=== PATIENT | male | born 2000 | race Caucasian/White ===

== ENCOUNTER 2025-05-05 09:19 | Emergency (ER) | payer BC, SELFPAY ==
--- NOTE | ~2025-05-05 | XR_ITS ---
Examination: XR chest 2V Clinical History: chest pain on right side since last night, no injuries, no s Comparison: Chest pain Technique: PA and Lateral Findings: Cardiomediastinal silhouette normal size and configuration. Lungs clear. No acute bony abnormality. IMPRESSION: 1. No acute cardiopulmonary findings. Reviewed, dictated and finalized at location R.
[2025-05-05 09:32] VITALS: BP 128/88; PULSE 48; RESP 16; TEMP 36.3; O2SAT 100
--- NOTE | 2025-05-05 09:47 | ECG_ITS ---
Test Date: 2025-05-05 09:46:25 Measurements Intervals [place] Rate: 48 P: 80 OR: 173 QRS: 81 QRSD: 102 T: 62 QT: 463 QTc: 416 Interpretive Statements SINUS BRADYCARDIA RSR' IN V1 OR V2, PROBABLY NORMAL VARIANT No previous ECG available for comparison Electronically Signed On 05-05-2025 14:33:47 CDT by Jose Angel Luna M.D.
--- NOTE | 2025-05-05 10:02 | ED.GENADULT ---
HPI - General Adult General Chief complaint: Chest Pain Stated complaint: chest pain Time Seen by Provider: 05/05/25 09:47 Source: patient, RN notes reviewed and old records reviewed Mode of arrival: ambulatory Limitations: no limitations History of Present Illness HPI narrative: 24-year-old male presents to the [facility] with right-sided chest pain that started last night. Reports it being more constant. Does not change with palpation, movement. Patient does occasionally smoke weed, does occasionally vape. Denies any shortness of breath. Denies any nausea vomiting. Denies any radiation of pain. Full range of motion of the shoulder. No treatment prior to arrival Treatments prior to arrival: none Related Data Home Medications ?Medication ?Instructions ?Recorded ?Confirmed ?Last Taken ?Type celecoxib 200 mg capsule mg 05/05/25 Unknown History Allergies Allergy/AdvReac Type Severity Reaction Status Date / Time No Known Allergies Allergy Verified 05/05/25 09:54 Review of Systems Review of Systems: All systems reviewed & are unremarkable except as noted in HPI and below Constitutional: Constitutional: Reports no additional constitutional complaints ENT: Reports system reviewed and no additional complaints, except as documented Cardiovascular: Cardiovascular: Reports as per HPI, Reports chest pain (Right-sided), Denies syncope, Denies rapid heart rate, Denies edema, Denies irregular heart rhythm and Denies dyspnea Respiratory: Respiratory: Reports no additional respiratory complaints, Denies chest congestion, Denies cough and Denies dyspnea Musculoskeletal: Musculoskeletal: Reports no additional musculoskeletal complaints Integumentary/Breasts: Skin/Breast: Reports system reviewed and no additional complaints, except as docu PMFSH Comments At the time of my signature, I reviewed and agree with the nursing past medical, surgical, social, and family history. There is no relevant family history pertinent to the patient complaint. Exam Const: General: cooperative, healthy appearing, comfortable, no acute distress, well developed, alert and well nourished Nutritional Appearance: well nourished Orientation/consciousness: patient oriented x3 Limitations: no limitations HENMT: Head: normal to inspection Ears: other (Cauliflower ear) Mouth: Yes Normal oral and palatal mucosa present, Yes lip normal, Yes tongue normal and Yes moist mucous membranes Throat: posterior oropharynx normal, uvula midline and no uvular edema Eyes: General: appearance normal, both eyes and all related structures Alignment and Position: alignment normal Neck: Neck: normal visual inspection, full ROM, no lymphadenopathy and no meningeal signs Chest: Chest palpation & inspection: normal inspection of the chest Chest/axillae images:  1. Reports pain, unable to reproduce pain with palpation. No radiation of pain. No bruising or swelling noted. Resp: Effort & Inspection: normal respiratory effort and able to speak in complete sentences Auscultation: clear to auscultation bilaterally, no crackles, no rales, no rhonchi and no wheezes Cardio: Rate: regular rate Skin: General skin exam: normal color and no rashes or lesions noted Neuro: General: patient oriented x3, gait normal, moves all extremities and no meningeal signs Cognition (Neuro): normal cognition Speech: normal speech Gait exam (Neuro): Normal gait present Extrem: General: normal to inspection, full ROM, capillary refill normal and normal gait Psych: Appearance: grossly normal and well kempt Mental Status: mental status grossly normal Speech and movement: Normal speech and movement present and Clear speech present Affect: normal affect Attitude: cooperative Course Course Level of Care: Express Care Visit Vital Signs Vital signs: Vital Signs Temperature 97.3 F L 05/05/25 09:32 Pulse Rate 48 L 05/05/25 09:32 Respiratory Rate 16 05/05/25 09:32 Blood Pressure 128/88 05/05/25 09:32 Pulse Oximetry 100 05/05/25 09:32 Oxygen Delivery Room Air 05/05/25 09:32 Temperature 97.3 F L 05/05/25 09:32 Pulse Rate 48 L 05/05/25 09:32 Respiratory Rate 16 05/05/25 09:32 Blood Pressure 128/88 05/05/25 09:32 Pulse Oximetry 100 05/05/25 09:32 Oxygen Delivery Room Air 05/05/25 09:32 Reviewed Medical Decision Making MDM Narrative Medical decision making narrative: Patient sitting in exam. Patient is nontoxic vitals stable. Patient presents with right-sided chest pain since last night. No treatment prior to arrival. EKG done, no acute findings. X-ray showed no acute findings. Discussed pleurisy with patient. Discussed taking anti-inflammatories and following up with primary care provider as well as signs and symptoms proceed to the emergency room. Patient has had no recent travel. Denies shortness of breath. Discharge instructions reviewed with patient, as well as provided in writing per nursing staff. The instructions also include specific and strict return/GO TO THE ER as well as f/u information. All questions have been answered, and the patient deny any further questions with discharge and discharge plan. Some parts of this dictation were generated by voice recognition software and may contain typographical and/or grammatical inaccuracies. Differential Diagnosis Differential Diagnosis: Atypical chest pain pleurisy costochondritis Medical Records Medical records reviewed: Yes I reviewed the external patient's medical records. Vital Signs Vital Signs: Vital Signs Temperature 97.3 F L 05/05/25 09:32 Pulse Rate 48 L 05/05/25 09:32 Respiratory Rate 16 05/05/25 09:32 Blood Pressure 128/88 05/05/25 09:32 Pulse Oximetry 100 05/05/25 09:32 Oxygen Delivery Room Air 05/05/25 09:32 Temperature 97.3 F L 05/05/25 09:32 Pulse Rate 48 L 05/05/25 09:32 Respiratory Rate 16 05/05/25 09:32 Blood Pressure 128/88 05/05/25 09:32 Pulse Oximetry 100 05/05/25 09:32 Oxygen Delivery Room Air 05/05/25 09:32 Reviewed Lab Data Lab results reviewed: Yes I reviewed the patient's lab results. Labs: Reviewed Imaging Data Radiologist's impression: Examination: XR chest 2V Clinical History: chest pain on right side since last night, no injuries, no s Comparison: Chest pain Technique: PA and Lateral Findings: Cardiomediastinal silhouette normal size and configuration. Lungs clear. No acute bony abnormality. IMPRESSION: 1. No acute cardiopulmonary findings. ECG Data EKG #1: Attestation: I personally reviewed and interpreted this ECG as follows: ECG completion date: 05/05/25 ECG completion time: 09:46 Prior ECG tracings: not available for review Interpretation: Sinus bradycardia. Ventricular rate 48, AR interval 173, QRS duration 102. No ST elevation or depression noted. Critical Care Time Critical Care Time Critical Care Time: No Discharge Plan Discharge Clinical Impression: Right-sided chest pain, Bradycardia Patient Disposition: Home Condition: Stable Instructions: Chest Pain (ED), Pleurisy (ED) Additional Instructions: Follow-up with your primary care provider in 1-2 weeks Take Tylenol as needed for pain Today your x-ray did not show any acute findings For new or worsening symptoms please go directly to the emergency room Patient Language: Hebrew Prescriptions: No Action celecoxib 200 mg capsule Follow-up/Referrals: UNKNOWN,DOCTOR [Primary Care Provider] Stand Alone Forms: Work/School Release IP Time of Disposition: 10:24
== END 2025-05-05 10:30 | disposition home or self-care (01) ==
PROVIDERS: Emergency Provider Nurse Practitioner
DX: R07.89 Other chest pain (principal); R00.1 Bradycardia, unspecified
CPT/HCPCS: 71046; 93005; 99213; G0463